=== PATIENT | female | born 1940 | race Caucasian/White ===

== ENCOUNTER 2016-12-25 06:24 | Day surgery (SDC) | payer MEDICARE, OTHER ==
[~2016-12-25 06:24] MED LIST: CIPRO500 MG PO; PRILOSEC OTC20 M1 PO
[2016-12-25 07:26] LABS: INR 0.9 INR (0.9-1.1); PROTHROMBIN TIME 10.2 SECONDS (9.0-13.6)
[2016-12-25 07:32] LABS: BASO % 0.6 % (0-2); EOSINOPHIL ABSOLUTE COUNT 0.1 tho/cmm (0.0-0.7); HCT-HEMATOCRIT 35.1 % (34.0-49.0); HGB-HEMOGLOBIN 11.3 gm/dl (12.0-15.5); LYMPH % 30.9 % (20-45); LYMPH ABSOLUTE COUNT 1.6 tho/cmm (0.8-4.5); MCH (MEAN CORPUSCULAR HGB) 28.7 pg (28.0-32.0); MCHC MEAN CORPUSCULAR HGB CONC 32.2 % (32.0-36.0); MCV (MEAN CELL VOLUME) 89.1 fl (82.0-96.0); MEAN PLATELET VOLUME 9.9 cmc (9.4-12.4); MONO % 12.9 % (0-12); MONOCYTE ABSOLUTE COUNT 0.7 tho/cmm (0.0-1.2); NEUTROPHIL ABSOLUTE COUNT 2.8 tho/cmm (1.6-8.0); NEUTROPHIL-AUTOMATED 2.8 tho/cmm (1.6-8.0); NEUTROPHILS % 53.6 % (40-80); PLATELET COUNT 248 tho/cmm (150-450); RED BLOOD COUNT 3.94 mil/cmm (4.00-5.20); RED CELL DISTRIBUTION WIDTH 14.3 % (12.4-16.4); WHITE BLOOD COUNT 5.1 tho/cmm (4.0-10.0)
== END 2016-12-25 13:30 ==
LOC: SHSB 06:24
PROVIDERS: Radiology Diagnostic Radiology
PROC: 0BBJ3ZX Excision of Left Lower Lung Lobe, Percutaneous Approach, Diagnostic (ICD-10-PCS; principal; 2016-12-25)
DX: R91.1 Solitary pulmonary nodule (principal); Z79.899 Other long term (current) drug therapy; Z88.0 Allergy status to penicillin; Z88.1 Allergy status to other antibiotic agents; Z88.2 Allergy status to sulfonamides; Z91.041 Radiographic dye allergy status; Z87.891 Personal history of nicotine dependence; Z90.710 Acquired absence of both cervix and uterus; Z90.49 Acquired absence of other specified parts of digestive tract; Z98.890 Other specified postprocedural states
CPT/HCPCS: J2250; J3010; J7030